=== PATIENT | male | born 1980 | race Caucasian/White ===

== ENCOUNTER 2020-07-12 14:11 | Emergency (ER) | payer BC, SELFPAY ==
[2020-07-12 14:18] VITALS: BP 133/87; PULSE 93; RESP 15; TEMP 36.8; O2SAT 98; BMI 26.6
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
[2020-07-12] MEDS: KETOROLAC 60 MG/2 ML VIAL 30 MG IM (14:46)
--- NOTE | 2020-07-12 15:43 | DI.CT.S_ITS ---
PROCEDURE: CT UE RT WO CON INDICATIONS: R scapula fracture TECHNIQUE: Noncontrast 1-1.5 mm thick sections acquired from the acromioclavicular joint to the inferior scapula, with coronal and sagittal reformatting. COMPARISON: [facility], CR, SHOULDER MIN 2VW (RT), 05/06/2014, 11:56. [facility], MR, SHOULDER RT W/ CONTRAST, 03/29/2014, 13:32. [facility], CR, SHOULDER MIN 2VW (RT), 03/11/2014, 13:27. [facility], CR, SHOULDER MIN 2VW (RT), 06/25/2014, 8:54. [facility], CR, XR SHOULDER RT MIN 2V, 07/12/2020, 14:29. FINDINGS: Image quality: Excellent. Bones: There is a comminuted fracture of the scapular body the with displacement and angulation. There is possible nondisplaced fracture of the scapular spine. There are postsurgical changes of the glenoid with surgical screws for fixation of anterior inferior glenoid fracture. 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 Moderate to severe glenohumeral joint degeneration and mild acromioclavicular joint degeneration. There is mild chronic superior subluxation of the distal clavicle at the acromioclavicular joint. There is subacute fracture of the anterior right 2nd rib at the costochondral junction with callus formation. Soft tissues: Mild soft tissue contusion. No soft tissue mass or hematoma. IMPRESSION: 1. Comminuted fracture of the scapular body with displacement and angulation. 2. 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 3. There is mild chronic superior subluxation of the distal clavicle at the acromioclavicular joint consistent with prior AC separation. 4. A subacute fracture of the anterior aspect of the right 2nd rib with callus. Dictated by: Cara Cancino M.D. on 07/12/2020 at 16:20 Approved by: Cara Cancino M.D. on 07/12/2020 at 16:40
[2020-07-12 16:37] VITALS: BP 151/88; PULSE 88; RESP 18; O2SAT 98
== END 2020-07-12 16:38 | disposition home or self-care (01) ==
PROVIDERS: Emergency Provider Nurse Practitioner
DX: S42.101A Fracture of unspecified part of scapula, right shoulder, initial encounter for closed fracture (principal); V29.9XXA Motorcycle rider (driver) (passenger) injured in unspecified traffic accident, initial encounter
CPT/HCPCS: 73030; 73200; 96372; 99284; J1885